=== PATIENT | male | born 1935 | race Caucasian/White ===

== ENCOUNTER 2022-04-09 12:32 | Outpatient (CLI) | payer MEDICARE, BC ==
[~2022-04-09 12:32] MED LIST: ALPR0.255; FLO0.4C; HYDR-3972 PO; LEVO200T8 PO; META-25 PO; METF-1203 PO; OXYB10TA30 PO; PANT40TA54 PO; PRAV10TA39 PO; TRAM50TA2 PO
== END 2022-04-09 23:59 | disposition home or self-care (01) ==
LOC: VAS 12:32
PROVIDERS: ATTEND Orthopaedic Surgery
DX: M17.11 Unilateral primary osteoarthritis, right knee (principal)
CPT/HCPCS: 93971